=== PATIENT | male | born 1980 ===

== ENCOUNTER 2016-06-22 13:15 | Emergency (ER) | payer OTHER ==
[2016-06-22 13:24] VITALS: TEMP 98.7
[2016-06-22] MEDS ORDERED: Sodium Chloride 0.9% 1,000 ML IV STA (13:41)
--- NOTE | 2016-06-22 13:43 | ED PDOC ---
HPI: SOB/CHF/COPD Time Seen by Provider: 06/22/16 13:30 Chief Complaint (Nursing): Shortness Of Breath Chief Complaint (Provider): Shortness Of Breath History Per: Patient History/Exam Limitations: no limitations Onset/Duration Of Symptoms: Days (x2 weeks) Current Symptoms Are (Timing): Still Present Additional Complaint(s): 35 y/o male who presents to the emergency department with a complaint palpitations x2 weeks after drinking redbull. Associated with shortness of breath. Denies nausea, vomiting, diarrhea, vision changes, dizziness, abdominal pain, or leg pain. No chest pain, dizziness, headaches, drugs, calf pain, fever , long distance travel, weakness. Has had similar in the past for a long time frequently. Past Medical History Reviewed: Historical Data, Nursing Documentation, Vital Signs Vital Signs: Last Vital Signs Temp 98.7 F 06/22/16 13:22 Pulse 69 06/22/16 13:22 Resp 16 06/22/16 13:41 BP 136/99 H 06/22/16 13:22 Pulse Ox 100 06/22/16 13:49 - Medical History PMH: No Chronic Diseases - Surgical History Surgical History: No Surg Hx - Family History Family History: States: Unknown Family Hx - Living Arrangements Living Arrangements: With Family - Social History Current smoker - smoking cessation education provided: No Alcohol: Social Drugs: Denies - Allergies Allergies/Adverse Reactions: Allergies Allergy/AdvReac Type Severity Reaction Status Date / Time No Known Allergies Allergy Verified 06/22/16 13:22 Review of Systems ROS Statement: Except As Marked, All Systems Reviewed And Found Negative Eyes: Negative for: Vision Change Cardiovascular: Positive for: Palpitations Respiratory: Positive for: Shortness of Breath Gastrointestinal: Negative for: Nausea, Vomiting, Abdominal Pain, Diarrhea Musculoskeletal: Negative for: Leg Pain Neurological: Negative for: Headache, Dizziness Physical Exam - Reviewed Nursing Documentation Reviewed: Yes Vital Signs Reviewed: Yes - Physical Exam Appears: Positive for: Non-toxic, No Acute Distress Head Exam: Positive for: ATRAUMATIC, NORMOCEPHALIC Skin: Positive for: Normal Color, Warm, Dry Eye Exam: Positive for: Normal appearance. Negative for: Conjunctival injection ENT: Positive for: Normal ENT Inspection. Negative for: Nasal Congestion Neck: Positive for: Normal, Painless ROM, Supple Cardiovascular/Chest: Positive for: Regular Rate, Rhythm. Negative for: Chest Non Tender, Edema, Murmur Respiratory: Positive for: Normal Breath Sounds. Negative for: Accessory Muscle Use, Respiratory Distress Gastrointestinal/Abdominal: Positive for: Normal Exam, Soft. Negative for: Tenderness Back: Positive for: Normal Inspection. Negative for: L CVA Tenderness, R CVA Tenderness Extremity: Positive for: Normal ROM. Negative for: Tenderness, Pedal Edema, Swelling Neurologic/Psych: Positive for: Alert, oracle adf developer II-XII, Oriented. Negative for: Motor/Sensory Deficits - Laboratory Results Result Diagrams: 06/22/16 13:55 - ECG ECG: Positive for: Interpreted By Me, Viewed By Me ECG Rhythm: Positive for: Normal QRS, Normal ST Segment, Sinus Rhythm O2 Sat by Pulse Oximetry: 100 (RA) Pulse Ox Interpretation: Normal - Progress ED Course And Treament: 1449: Stable. Dr. Reynoso to fu on labs. AAOx3. Medical Decision Making Medical Decision Making: Time: 13:30 Initial impression: Shortness of breath Initial plan: --Electrocardiogram Stat --Alcohol Serum Stat --COMP Metabolic Panel --Drug Screen, Urine Stat --Troponin I stat --EKG-ED (EDNURTX) --CBC w/ differential --Sodium Chloride 1,000 ml IV 1,000 mls/hr --Revaluation Scribe Attestation: Documented by Kamala Sandoval, acting as a scribe for Wilfredo Brock MD. Provider Scribe Attestation: All medical record entries made by the Scribe were at my direction and personally dictated by me. I have reviewed the chart and agree that the record accurately reflects my personal performance of the history, physical exam, medical decision making, and the department course for this patient. I have also personally directed, reviewed, and agree with the discharge instructions and disposition. Disposition - Clinical Impression Clinical Impression: Palpitations - Patient ED Disposition Is Patient to be Admitted: Transfer of Care - Disposition Disposition: Transfer of Care Disposition Time: 14:51 Condition: STABLE Patient Signed Over To: Carmen Reynoso Present On Arrival: None
[2016-06-22 14:00] LABS: BASO # 0.1 K/uL (0.0-0.2); BASO % 0.8 % (0.0-2.0); EOS # 0.2 K/uL (0.0-0.7); EOS % 2.2 % (0.0-4.0); HEMATOCRIT 50.8 % (35.0-51.0); LYMPH # 3.6 K/uL (1.0-4.3); LYMPH % 32.3 % (20.0-40.0); MEAN CELL VOLUME 90.7 fl (80.0-94.0); MEAN CORPUSCULAR HEMOGLOBIN 29.8 pg (27.0-31.0); MEAN CORPUSCULAR HGB CONC 32.9 g/dL (33.0-37.0); MEAN PLATELET VOLUME 8.9 fl (7.2-11.7); MONO # 0.9 K/uL (0.0-0.8); NEUT # 6.3 K/uL (1.8-7.0); NEUT % 56.7 % (50.0-75.0); NRBC % 0.1 % (0.0-0.0); RED CELL DISTRIBUTION WIDTH 13.9 % (11.5-14.5)
[2016-06-22 14:57] LABS: ALB/GLOB RATIO 1.1 (1.0-2.1); ALCOHOL SERUM < 10 mg/dl (0-10); ALKALINE PHOSPHATASE 97 U/L (38-126); ALT/SGPT 50 U/L (21-72); AST/SGOT 35 U/L (17-59); BILIRUBIN,TOTAL 0.7 mg/dl (0.2-1.3); BLOOD UREA NITROGEN 13 mg/dl (9-20); CALCIUM 9.4 mg/dL (8.4-10.2); CARBON DIOXIDE 25 mmol/L (22-30); CHLORIDE 105 mmol/L (98-107); GFR AFRICAN-AMERICAN > 60; GLUCOSE,RANDOM 94 mg/dL (75-110); POTASSIUM 3.9 MMOL/L (3.6-5.0); SODIUM 145 mmol/l (132-148); TOTAL PROTEIN 8.5 G/DL (6.3-8.2)
--- NOTE | 2016-06-22 15:00 | ED PDOC ---
- Laboratory Results Result Diagrams: 06/22/16 13:55 06/22/16 13:55 - ECG O2 Sat by Pulse Oximetry: 100 (RA) Pulse Ox Interpretation: Normal Medical Decision Making Medical Decision Making: Time: 15:00 --Patient is pending ER work up, reassessment, and final disposition. 330 On reeval pt stable. Labs unremarkable. DW pt findings and plan of care. Avoid all types of energy drinks and excessive alcohol/caffeine. F/U clinic. Disposition Counseled Patient/Family Regarding: Studies Performed, Diagnosis, Need For Followup - Clinical Impression Clinical Impression: Palpitations - POA Present On Arrival: None - Disposition Referrals: [facility] [Outside] Disposition: Routine/Home Disposition Time: 15:30 Condition: STABLE Additional Instructions: VISIT YOUR DOCTOR IN 2-3 DAYS FOR REEVALUATION DO NOT DRINK ANY ENERGY DRINKS. AVOID EXCESS CAFFEINE OR ALCOHOL. Instructions: Palpitations (ED) Print Language: FRENCH
[2016-06-22 15:39] VITALS: BP 119/90; PULSE 64; RESP 18
[2016-06-22 15:58] VITALS: O2SAT 100
--- NOTE | 2016-06-22 17:20 | CARD ---
APPROVED REPORT EKG Measurement Heart [id number] [place] [id number] <Conclusion> Normal sinus rhythm Normal ECG
== END 2016-06-22 16:13 | disposition home or self-care (01) ==
LOC: H.ER 13:15
DX: R00.2 Palpitations (principal)

== ENCOUNTER 2017-12-21 05:41 | Emergency (ER) | payer OTHER ==
--- NOTE | 2017-12-21 06:53 | ED PDOC ---
HPI: Chest Pain Time Seen by Provider: 12/21/17 06:28 Chief Complaint (Nursing): Chest Pain Chief Complaint (Provider): Palpitations History Per: Patient History/Exam Limitations: no limitations Onset/Duration Of Symptoms: Days (x2 weeks) Current Symptoms Are (Timing): Intermittent Episodes Additional Complaint(s): 36 year old male with no pmhx presents to the ED for evaluation of intermittent palpitations for the last two weeks. He states they occur when he is at rest or with exercise, and there is no pain, but he becomes more aware of it when it is irregular. Additionally, he reports finding it difficult to catch his breath when his heart begins beating fast. Otherwise, denies drug use, excessive caffeine or energy drinks, or recent illnesses. PMD: none provided Past Medical History Reviewed: Historical Data, Nursing Documentation, Vital Signs Vital Signs: Last Vital Signs Temp 97.7 F 12/21/17 05:48 Pulse 78 12/21/17 05:59 Resp 20 12/21/17 05:48 BP 135/85 12/21/17 05:59 Pulse Ox 98 12/21/17 05:48 - Medical History PMH: No Chronic Diseases - Surgical History Surgical History: No Surg Hx - Family History Family History: States: Hypertension - Social History Ex-Smoker (has not smoked in the last 12 months): Yes Drugs: Denies - Home Medications Home Medications: Ambulatory Orders Medication Instructions Recorded Metoprolol Tartrate 25 mg PO BID #10 tablet 12/21/17 - Allergies Allergies/Adverse Reactions: Allergies Allergy/AdvReac Type Severity Reaction Status Date / Time No Known Allergies Allergy Verified 12/21/17 05:50 Review of Systems ROS Statement: Except As Marked, All Systems Reviewed And Found Negative Cardiovascular: Positive for: Palpitations Physical Exam - Reviewed Nursing Documentation Reviewed: Yes Vital Signs Reviewed: Yes - Physical Exam Appears: Positive for: No Acute Distress Head Exam: Positive for: ATRAUMATIC, NORMOCEPHALIC Skin: Positive for: Normal Color, Warm, Dry. Negative for: Rash Eye Exam: Positive for: Normal appearance ENT: Positive for: Normal ENT Inspection Neck: Positive for: Normal, Painless ROM, Supple Cardiovascular/Chest: Positive for: Other (regular irregular heartbeat) Respiratory: Positive for: Normal Breath Sounds. Negative for: Accessory Muscle Use, Respiratory Distress Gastrointestinal/Abdominal: Positive for: Normal Exam, Soft. Negative for: Tenderness Back: Positive for: Normal Inspection Extremity: Positive for: Normal ROM Neurologic/Psych: Positive for: Alert, Oriented (x3). Negative for: Motor/Sensory Deficits - Laboratory Results Result Diagrams: 12/21/17 06:41 12/21/17 06:41 - ECG O2 Sat by Pulse Oximetry: 98 (RA) Pulse Ox Interpretation: Normal Medical Decision Making Medical Decision Making: A/P: 36 year old male presenting with palpitations --very well appearing however appears to be in bigeminy at this time --placed on a assistive technology trainer Time: 642 Initial Plan: --Type and screen --EKG --Alcohol serum --BMP --U-dip --Trop I --CBC with differential --PT / PTT 0700 Pt care is endorsed from contract technical writer to Dr. Hernandez pending labs and reevaluati on. Scribe Attestation: Documented by Nesha Yo, acting as a scribe for Americo Williamson MD. Provider Scribe Attestation: All medical record entries made by the Scribe were at my direction and persona lly dictated by me. I have reviewed the chart and agree that the record accurately reflects my personal performance of the history, physical exam, medical decision making, and the department course for this patient. I have also personally directed, reviewed, and agree with the discharge instructions and disposition. Disposition - Clinical Impression Clinical Impression: Palpitations - Disposition Referrals: Nicholas Garcia MD [Staff Provider] - Disposition Time: 07:00 Condition: STABLE Additional Instructions: See receiving coordinator for further testing. Return to ER for any new or worsening symptoms. Take metoprolol 25mg 2x daily. Avoid all drug use. Prescriptions: Metoprolol Tartrate 25 mg PO BID #10 tablet Instructions: Palpitations (DC) Forms: [employer] (Armenian), [facility] ED School/Work Excuse
[2017-12-21] MEDS ORDERED: Metoprolol 1 mg/ml Inj IVP ONE (07:03)
--- NOTE | 2017-12-21 07:03 | ED PDOC ---
- Laboratory Results Result Diagrams: 12/21/17 06:41 12/21/17 06:41 - ECG O2 Sat by Pulse Oximetry: 98 (RA) Medical Decision Making Medical Decision Making: recd 7am pending labs 36yo M with palpitations and chest tightness. EKG reveals sinus with ectopy and frequent bigeminy. Accession No. : [id number] Patient Name / ID : CARMELLA WALKER / [id number] Exam Date : 12/21/2017 14:57:07 ( Approved ) Study Comment : Sex / Age : M / 36Y Creator : Alex Diallo MD Dictator : Alex Diallo MD Metal Coater : Form Coverer : Alex Diallo MD Approver2 : Report Date : 12/21/2017 15:42:30 My Comment : This report is currently processing and HAS NOT BEEN OFFICIALLY SIGNED BY THE PHYSICIAN - ESTIMATED TIME OF APPROVAL IS 12/21/2017 15:51. Date of service: 12/21/2017 PROCEDURE: CT Chest with contrast (Pulmonary Angiogram) HISTORY: chest pain COMPARISON: None available. TECHNIQUE: Axial computed tomography images were obtained of the chest in the pulmonary arterial phase of enhancement. Coronal and sagittal reformatted images were created and reviewed. Intravenous contrast dose: 98 mL Visipaque 320 Radiation dose: Total exam DLP = 347.2 mGy-cm. This CT exam was performed using one or more of the following dose reduction techniques: Automated exposure control, adjustment of the mA and/or kV according to patient size, and/or use of iterative reconstruction technique. FINDINGS: PULMONARY ARTERIES: Unremarkable. No pulmonary embolism. AORTA: No acute findings. No thoracic aortic aneurysm. LUNGS: Unremarkable. No nodule, mass or pulmonary consolidation. PLEURAL SPACES: Unremarkable. No effusion or pneumothorax. HEART: Unremarkable. No cardiomegaly. No significant pericardial effusion. LYMPH NODES: No lymphadenopathy. BONES, CHEST WALL: Unremarkable. No fracture or destructive lesion OTHER FINDINGS: Unremarkable. IMPRESSION: Unremarkable CT pulmonary angiogram. No pulmonary embolus. repeat ekg #3 sinus with APCs, trace ST elev V3 but consistent w 2017 EKG No chest pain. Symptoms ongoing 3 weeks HEART score 0 DC w metoprolol 25mg BID, refer to cardio Drug avoidance Disposition Counseled Patient/Family Regarding: Studies Performed, Diagnosis, Need For Followup - Clinical Impression Clinical Impression: Palpitations - POA Present On Arrival: None - Disposition Referrals: Nicholas Garcia MD [Staff Provider] - Disposition: Routine/Home Disposition Time: 15:59 Condition: STABLE Additional Instructions: See tenant coordinator for further testing. Return to ER for any new or worsening symptoms. Take metoprolol 25mg 2x daily. Avoid all drug use. Prescriptions: Metoprolol Tartrate 25 mg PO BID #10 tablet Instructions: Palpitations (DC) Forms: [facility] ([place])
[2017-12-21 07:17] LABS: INR 1.1; PROTHROMBIN TIME 12.4 Seconds (9.8-13.1)
[2017-12-21 07:20] LABS: PARTIAL THROMBOPLASTIN TIME 29.5 Seconds (25.6-37.1)
[2017-12-21 07:31] LABS: BLOOD UREA NITROGEN 14 mg/dl (9-20); CALCIUM 9.5 mg/dL (8.4-10.2); GFR NON-AFRICAN AMERICAN > 60
[2017-12-21 07:32] LABS: BASO # 0.1 K/uL (0.0-0.2); BASO % 0.7 % (0.0-2.0); EOS # 0.1 K/uL (0.0-0.7); EOS % 0.6 % (0.0-4.0); HEMOGLOBIN 16.6 g/dL (12.0-18.0); LYMPH # 2.4 K/uL (1.0-4.3); LYMPH % 21.3 % (20.0-40.0); MEAN CELL VOLUME 90.3 fl (80.0-94.0); MEAN CORPUSCULAR HEMOGLOBIN 30.4 pg (27.0-31.0); MEAN CORPUSCULAR HGB CONC 33.7 g/dL (33.0-37.0); MEAN PLATELET VOLUME 9.3 fl (7.2-11.7); MONO % 8.7 % (0.0-10.0); NEUT # 7.8 K/uL (1.8-7.0); NEUT % 68.7 % (50.0-75.0); NRBC % 0.1 % (0.0-0.0); RBC 5.47 Mil/uL (4.40-5.90); RED CELL DISTRIBUTION WIDTH 13.9 % (11.5-14.5); WHITE BLOOD COUNT 11.3 K/uL (4.8-10.8)
[2017-12-21 07:36] LABS: BARBITURATES, UR NEGATIVE (NEGATIVE); BENZODIAZEPINES, UR NEGATIVE (NEGATIVE); OPIATES, UR NEGATIVE (NEGATIVE); PHENCYCLIDINE, UR NEGATIVE (NEGATIVE)
[2017-12-21] MEDS ORDERED: Metoprolol 1 mg/ml Inj ONE (08:00)
--- NOTE | 2017-12-21 08:15 | CARD ---
APPROVED REPORT Date of service: 12/21/2017 EKG Measurement Heart [id number] [place] [id number] <Conclusion> Sinus rhythm with 1st degree AV block with premature atrial complexes in a pattern of bigeminy Otherwise normal ECG
--- NOTE | 2017-12-21 11:06 | RAD ---
Date of service: 12/21/2017 HISTORY: palpitations COMPARISON: No prior. TECHNIQUE: Chest PA and lateral FINDINGS: LUNGS: No active pulmonary disease. PLEURA: No significant pleural effusion identified. No pneumothorax apparent. CARDIOVASCULAR: Normal. OSSEOUS STRUCTURES: No significant abnormalities. VISUALIZED UPPER ABDOMEN: Normal. OTHER FINDINGS: None. IMPRESSION: No active disease.
[2017-12-21 12:27] VITALS: RESP 19
[2017-12-21] MEDS ORDERED: Sodium Chloride 0.9% 50 ML IV ONE (14:42)
[2017-12-21] MEDS ORDERED: Iodixanol 320 MG/ML 100 ML BOTTLE IV ONE (14:42)
--- NOTE | 2017-12-21 15:47 | CT ---
Date of service: 12/21/2017 PROCEDURE: CT Chest with contrast (Pulmonary Angiogram) HISTORY: chest pain COMPARISON: None available. TECHNIQUE: Axial computed tomography images were obtained of the chest in the pulmonary arterial phase of enhancement. Coronal and sagittal reformatted images were created and reviewed. Intravenous contrast dose: 98 mL Visipaque 320 Radiation dose: Total exam DLP = 347.2 mGy-cm. This CT exam was performed using one or more of the following dose reduction techniques: Automated exposure control, adjustment of the mA and/or kV according to patient size, and/or use of iterative reconstruction technique. FINDINGS: PULMONARY ARTERIES: Unremarkable. No pulmonary embolism. AORTA: No acute findings. No thoracic aortic aneurysm. LUNGS: Unremarkable. No nodule, mass or pulmonary consolidation. PLEURAL SPACES: Unremarkable. No effusion or pneumothorax. HEART: Unremarkable. No cardiomegaly. No significant pericardial effusion. LYMPH NODES: No lymphadenopathy. BONES, CHEST WALL: Unremarkable. No fracture or destructive lesion OTHER FINDINGS: Unremarkable. IMPRESSION: Unremarkable CT pulmonary angiogram. No pulmonary embolus.
[2017-12-21 15:57] VITALS: O2SAT 98
[2017-12-21 16:09] VITALS: BP 130/78; PULSE 78; TEMP 97.6
--- NOTE | 2017-12-22 00:09 | CARD ---
APPROVED REPORT Date of service: 12/21/2017 EKG Measurement Heart [id number] [place] [id number] <Conclusion> Sinus rhythm with premature atrial complexes Cannot rule out Anterior infarct, age undetermined Abnormal ECG
--- NOTE | 2017-12-22 00:14 | CARD ---
APPROVED REPORT Date of service: 12/21/2017 EKG Measurement Heart [id number] P5 [id number] <Conclusion> Sinus rhythm with frequent premature atrial complexes Abnormal ECG
== END 2017-12-21 16:11 | disposition home or self-care (01) ==
LOC: H.ER 05:41
DX: R00.2 Palpitations (principal)
CPT/HCPCS: 71046; 71275; 80048; 80320; 80324; 80345; 80346; 80349; 80353; 80358; 80361; 83992; 84484; 85025; 85610; 85730; 86850; 86900; 93005; 96374; 96375; 99285; J2060; Q9967